=== PATIENT | female | born 1965 | race African-American/Black ===

== ENCOUNTER 2017-10-03 04:58 | Day surgery (SDC) | payer OTHER ==
[2017-10-03 09:26] VITALS: BMI 28.3
[2017-10-03] MEDS ORDERED: IBUPROFEN 800 MG/8 ML IJ IVPB PRN (10:29)
[2017-10-03] MEDS ORDERED: LACTATED RINGERS SOLUTION 1,000 ML IV SCH ×2 (10:30→12:00)
--- NOTE | 2017-10-03 10:30 | HP ---
History & Physical Update - History History: No Change - Physical Physical: No Change - Assessment Assessment: No Change - Plan Plan: No Change (for hysteroscopic myomectomy, suction D&C for endometrial polyp - agree with H&P from 09/18/17)
[2017-10-03] MEDS ORDERED: MIDAZOLAM HCL 2 MG/2 ML SINGLE DOSE VIAL ONE (11:01)
[2017-10-03] MEDS ORDERED: PROPOFOL 20 ML ONE (11:01)
[2017-10-03] MEDS ORDERED: DEXAMETHASONE SOD PHOSPHATE 4 MG/1 ML VIAL ONE (11:22)
--- NOTE | 2017-10-03 11:43 | OP ---
Operative Note - Note: Operative Date: 10/03/17 Pre-Operative Diagnosis: endometrial polyp Operation: hysteroscopy, suction D&C, polypectomy Findings: dense polypoid endometrial tissue, no discrete intracavitary polyps/fibroids Post-Operative Diagnosis: Same as Pre-op Surgeon: Ilsa Alvarez Anesthesiologist/PEDIATRIC CLINICAL DIETICIAN: Lizzette Fagan Anesthesia: General (with LMA) Specimens Removed: endometrial currettings, endometrial polyp Estimated Blood Loss (mls): 5 Operative Report Dictated: Yes
[2017-10-03] MEDS ORDERED: oxyCODONE HCL 5 MG TABLET PO PRN (11:52)
[2017-10-03] MEDS ORDERED: ONDANSETRON 4 MG/2 ML VIAL IVPUSH PRN (11:52)
[2017-10-03] MEDS ORDERED: PROMETHAZINE HCL 25 MG/1 ML VIAL IVPB PRN (11:52)
[2017-10-03] MEDS ORDERED: IBUPROFEN 800 MG/8 ML IJ IVPB ONE ×2 (12:04→12:14)
--- NOTE | 2017-10-03 13:43 | OP ---
DATE OF OPERATION: 10/03/2017 PREOPERATIVE DIAGNOSIS: Endometrial polyp. POSTOPERATIVE DIAGNOSIS: Endometrial polypoid tissue. SURGEON: Ilas Alvarez MD ASSISTANTS: None. ANESTHESIA: LMA. ANESTHESIOLOGIST: Lizzette Fagan MD PROCEDURE: Hysteroscopy, dilatation and curettage with suction, and polypectomy. COUNTS: Sponge, needle, and instrument counts correct. SPECIMENS: Endometrial polyp and endometrial curettings. DISPOSITION: Stable to PACU. BRIEF HISTORY AND PROCEDURE: Patient is a 52-year-old female with complaints of endometrial polyps with a history of sonogram in the office and was counseled on her options and she signed consent for a hysteroscopic polypectomy, possible myomectomy and suction dilatation and curettage. The patient was then admitted to [facility] on October 03, 2017. Consents were reconfirmed upon admission. The patient was then taken back to the operating room where she was placed in the dorsal lithotomy position, given anesthesia with LMA by Dr. Fagan, and a hard time-out was performed. A speculum was placed inside the vagina. The anterior lip of the cervix was grasped with a single-tooth tenaculum, and a diagnostic hysteroscope was advanced to the fundus of the uterus. Bilateral tubal ostia were noted. No discrete polyps or fibroids were noted. However, dense polypoid tissue in the posterior aspect of the uterus was appreciated. At this point, a sharp curettage was completed in all 4 kiser of the uterus, paying particular attention to the back posterior wall, and a suction dilatation and curettage was performed. Re-evaluation with the diagnostic hysteroscope revealed no evidence of uterine perforation, and polypoid tissue appeared to have been removed. Specimens were sent to Pathology for permanent evaluation. All instruments were removed from the vagina. Minimal bleeding was noted from the cervical os as well as the tenaculum sites. The patient was awoken from anesthesia and is recovering in stable condition in the PACU at the time of this dictation. ILSA ALVAREZ DO /[id number]
[2017-10-03 14:23] VITALS: BP 115/69; PULSE 77; TEMP 98
--- NOTE | 2017-10-04 16:25 | PATH ---
Surgical Pathology Report Patient Name: SAM AUGUSTINE [facility]. Rec. #: [id number] /Age/Gender: 1965 (Age: 52) / F Account: [id number] Location: [facility] SURGICAL Taken: 10/03/2017 Received: 10/03/2017 Reported: 10/04/2017 Physicians: Ilsa Alvarez M.D. Specimen(s) Received ENDOMETRIAL CURETTINGS AND POLYPS Clinical History Endometrial polyps Final Diagnosis ENDOMETRIAL POLYPS AND CURETTINGS: FRAGMENTS OF ENDOMETRIAL POLYPS. STRIPS OF WEAKLY PROLIFERATIVE ENDOMETRIAL GLANDS AND STROMA. UNREMARKABLE CERVICAL SQUAMOUS EPITHELIUM PRESENT. Electronically Signed Reinier Grover M.D. Gross Description Received in formalin, labeled "endometrial polyps and curettings" are multiple atkinson, irregular portions of soft tissue measuring 1.5 cm. in greatest dimension. The specimens are submitted in toto in one cassette. FRITZ/10/03/2017 simón/10/03/2017
== END 2017-10-03 14:35 | disposition home or self-care (01) ==
LOC: JASU-SURG 04:58
PROVIDERS: ATTEND Obstetrics & Gynecology
PROC: 0UJD8ZZ Inspection of Uterus and Cervix, Via Natural or Artificial Opening Endoscopic (ICD-10-PCS; 2017-10-03)
PROC: 0UB97ZX Excision of Uterus, Via Natural or Artificial Opening, Diagnostic (ICD-10-PCS; principal; 2017-10-03 10:30)
PROC: 0UDB7ZX Extraction of Endometrium, Via Natural or Artificial Opening, Diagnostic (ICD-10-PCS; 2017-10-03 10:30)
DX: N84.0 Polyp of corpus uteri (principal)
CPT/HCPCS: 84703; 88305-TC; 94760

== ENCOUNTER 2022-01-06 04:25 | Day surgery (SDC) | payer OTHER ==
[2022-01-04 13:42] VITALS: BMI 29.9
[2022-01-06 13:15] VITALS: BP 114/65; PULSE 63; RESP 18; TEMP 98
== END 2022-01-06 13:00 | disposition home or self-care (01) ==
LOC: JASU-ENDO 04:25
PROVIDERS: ATTEND Internal Medicine Gastroenterology
PROC: 0DJD8ZZ Inspection of Lower Intestinal Tract, Via Natural or Artificial Opening Endoscopic (ICD-10-PCS; principal; 2022-01-06 11:00)
DX: Z12.11 Encounter for screening for malignant neoplasm of colon (principal); K62.89 Other specified diseases of anus and rectum; K64.8 Other hemorrhoids; E11.9 Type 2 diabetes mellitus without complications; Z86.010 Personal history of colon polyps; Z79.84 Long term (current) use of oral hypoglycemic drugs
CPT/HCPCS: 82962